=== PATIENT | male | born 1985 | race Caucasian/White ===

== ENCOUNTER 2020-02-28 14:52 | Emergency (ER) | payer SELFPAY ==
[~2020-02-28] VITALS: Ht 180.3 cm; Wt 80.0 kg
[~2020-02-28 14:52] MED LIST: ACETTAB3 OR; AMOXICILLIN500 MG OR; CIPRO500 MG OR; FIORICET OR; LORTAB 5 OR; NO CURRENT MEDS; SEROQUEL100 MG OR; SEROQUEL25 MG OR; TEGRETOL OR; ZOFRAN ODT4 MG OR
[2020-02-28] MEDS ORDERED: IBUPROFEN600 MG PO (16:37)
[2020-02-28] MEDS ORDERED: KEFLEX500 M1 PO (16:37)
[2020-02-28] MEDS ORDERED: HYDROCO/APAP1 TA9 PO (16:37)
[2020-02-28 17:20] VITALS: BP 123/80
== END 2020-02-28 17:20 | disposition home or self-care (01) | DRG 605 ==
LOC: ED 14:52
DX: S61.431A Puncture wound without foreign body of right hand, initial encounter (principal); F17.200 Nicotine dependence, unspecified, uncomplicated; W22.8XXA Striking against or struck by other objects, initial encounter; Y93.89 Activity, other specified; Y92.009 Unspecified place in unspecified non-institutional (private) residence as the place of occurrence of the external cause

== ENCOUNTER 2020-09-04 02:04 | Emergency (ER) | payer SELFPAY ==
[~2020-09-04] VITALS: Ht 180.3 cm; Wt 75.0 kg
[~2020-09-04 02:04] MED LIST changes: +HYDROCO/APAP1 TA9 PO; +IBUPROFEN600 MG PO; +KEFLEX500 M1 PO
[2020-09-04 02:05] VITALS: BP 134/81
[2020-09-04] MEDS ORDERED: MEDICAL MARIJUANA (02:28)
== END 2020-09-04 02:30 | disposition left against medical advice (07) | DRG 948 ==
LOC: ED 02:04
DX: R68.89 Other general symptoms and signs (principal); F17.200 Nicotine dependence, unspecified, uncomplicated; Z91.19 Patient's noncompliance with other medical treatment and regimen

== ENCOUNTER 2021-04-02 05:13 | Emergency (ER) | payer SELFPAY ==
[~2021-04-02] VITALS: Ht 177.8 cm; Wt 72.0 kg
[~2021-04-02 05:13] MED LIST changes: +MEDICAL MARIJUANA
[2021-04-02] MEDS ORDERED: IMITREX25 MG PO (05:38)
[2021-04-02 05:43] LABS: HEMATOCRIT 42.7 % (39.0-50.0); HEMOGLOBIN 13.7 g/dl (14.0-18.0); IMMATURE GRANULOCYTES 0.1 % (0.0-5.0); MEAN CELL VOLUME 92.6 fL CALC (80.0-100.0); MEAN CORPUSCULAR HGB 29.7 pG CALC (26.0-32.0); MEAN CORPUSCULAR HGB CONC 32.1 g/dL CAL (32.0-36.0); NEUT# 2.36 thou/uL (1.82-7.42); RED BLOOD COUNT 4.61 mill/uL (4.70-6.10); RED CELL DISTRI WIDTH 12.5 % (11.5-15.5)
[2021-04-02 06:16] LABS: ALBUMIN 4.6 g/dL (3.2-5.0); ALKALINE PHOSPHATASE 65 u/l (38-126); ANION GAP 17 (6-22 (CALC)); BUN 30 mg/dL (9-20); BUN/CREATININE RATIO 35 (12-20 (CALC)); CARBON DIOXIDE 25 mmol/l (22-30); CHLORIDE 101 mmol/l (95-108); CREATININE 0.9 mg/dL (0.7-1.3); GFR > 60 ML/MIN (>=60 (CALC)); GFR FOR AFR.AMER. > 60 ML/MIN (>=60 (CALC)); POTASSIUM 4.4 mmol/l (3.5-5.1); SGOT/AST 27 u/l (17-59); SODIUM 139 mmol/l (137-146)
[2021-04-02 06:18] LABS: BILIRUBIN, TOTAL 0.5 mg/dL (0.0-1.4)
[2021-04-02] MEDS ORDERED: FIORICET PO (06:54)
[2021-04-02 07:47] VITALS: BP 134/82
== END 2021-04-02 07:53 | disposition home or self-care (01) | DRG 103 ==
LOC: ED 05:13
PROVIDERS: Emergency Medicine
DX: G43.909 Migraine, unspecified, not intractable, without status migrainosus (principal); E86.0 Dehydration; F17.200 Nicotine dependence, unspecified, uncomplicated; Z79.899 Other long term (current) drug therapy; Z86.16 Personal history of COVID-19

== ENCOUNTER 2021-04-11 05:44 | Emergency (ER) | payer SELFPAY ==
[~2021-04-11] VITALS: Ht 177.8 cm; Wt 75.0 kg
[~2021-04-11 05:44] MED LIST changes: +FIORICET PO; +IMITREX25 MG PO
[2021-04-11] MEDS ORDERED: IMITREX6 MG/0.5 M SC (06:59)
[2021-04-11] MEDS ORDERED: PHENERGAN25 MG RE (06:59)
[2021-04-11 07:55] VITALS: BP 125/84
== END 2021-04-11 07:55 | disposition home or self-care (01) | DRG 103 ==
LOC: ED 05:44
DX: G43.109 Migraine with aura, not intractable, without status migrainosus (principal); Z86.16 Personal history of COVID-19